=== PATIENT | female | born 1945 | race Caucasian/White ===

== ENCOUNTER → 2018-03-13 | Day surgery (SDC) | payer MEDICARE, OTHER ==
[~2018-03-13] MED LIST: AMOXICILLIN250 MG PO; ARMOUR THYROID60 MG PO; BUSPIRONE HCL5 MG PO; CYMBALTA30 MG PO; DEXAMETHASONE SOD PHOS INJ 4 MG/ML VIAL ONE; FENTANYL CITRATE/PF 100MCG/2 ML INJ ONE; FLUOCINONIDE60 ML TOP; GLYCOPYRROLATE INJ 1MG/ 5 ML SYR ONE; LABETALOL HCL 5 MG/ML 20ML VIAL ONE; LIDOCAINE 1% W/EPINEPHRINE 20 ML VIAL ONE; LIDOCAINE HCL 2% LOCAL INJ 5 ML SDV VIAL INJ ONE; LISINOPRIL2.5 MG PO; METOPROLOL SUCC50 MG PO; MIDAZOLAM HCL 2 MG/2 ML VIAL ONE; MONTELUKAST SOD10 MG PO; NEOSTIGMINE 1 MG/ML 10ML VIAL ONE; NEOSTIGMINE 5 MG/5ML SYR ONE; NYSTATIN-TRIAMC15 GM TOP; ONDANSETRON HCL INJ 2 MG/ML VIAL ONE; POTASSIUM CHLO10 ME1 PO; PROPOFOL IV EMULSION 10 MG/ML 20 ML VIAL ONE; ROCURONIUM BROMIDE 10 MG/ML 5ML VIAL ONE; SEVOFLURANE INHAL SOLN 250 ML PEN BTL ONE; VESICARE5 MG PO; VICTOZA 2-0.6 MG/0.1 SQ
--- OUTSIDE RECORDS SUMMARY | 2018-03-13 08:57 | XMS REPORT | Clinical Summary ---
Author Author [facility] [facility] Organization [facility] Address Unknown Phone Unavailable Care Team Providers Care Overnight Caregiver Name Role Phone Breanne Clarke MD PCP Allergies Active Allergy Reactions Severity Noted Date Comments Codeine Itching 08/29/2016 Influenza Vaccine Tri-Sp Swelling 08/29/2016 Swelling at site 09- Morphine (Pf) 10/12/2016 Pneumococcal Vaccine Itching, Swelling 08/29/2016 Carbamazepine Itching 08/29/2016 Current Medications Prescription Sig. Disp. Refills Start End Date Status Date lisinopril Take 5 mg by mouth daily. Active (PRINIVIL,ZESTRIL) 5 MG tablet solifenacin (VESICARE) 10 Take 5 mg by mouth daily. Active MG tablet furosemide (LASIX) 40 MG Take 40 mg by mouth 2 Active tablet (two) times a day. montelukast (SINGULAIR) Take 10 mg by mouth Active 10 mg tablet nightly. DULoxetine (CYMBALTA) 60 Take 60 mg by mouth Active MG capsule daily. clopidogrel (PLAVIX) 75 Take 75 mg by mouth Active mg tablet daily. thyroid, pork, (ARMOUR Take 1 tablet (120 mg 90 tablet 1 12/19/19 Active THYROID) 120 mg tablet total) by mouth daily. 17 dulaglutide (TRULICITY) Inject 0.75mg under the 4 Syringe 2 04/12/20 Active 0.75 mg/0.5 mL pen skin, once a week 17 injector ANORO ELLIPTA 62.5-25 INHALE ONE DOSE BY MOUTH 60 each 0 06/26/20 Active mcg/actuation blister DAILY 17 with device ziprasidone (GEODON) 40 Take 40 mg by mouth Active MG capsule daily. busPIRone (BUSPAR) 15 MG Take 15 mg by mouth Active tablet daily. ondansetron ODT (ZOFRAN Take 1 tablet (4 mg 20 tablet 0 07/01/20 Active ODT) 4 MG disintegrating total) by mouth every 8 17 tablet (eight) hours as needed for nausea or vomiting for up to 30 doses. metFORMIN (GLUCOPHAGE) Take 500 mg by mouth. 04/06/20 Discontin 500 MG tablet 17 ued ziprasidone (GEODON) 60 Take 60 mg by mouth 2 07/01/20 Discontin MG capsule (two) times a day with 17 ued meals. diphenhydrAMINE Take by mouth 4 (four) 07/01/20 Discontin (BENADRYL) 12.5 mg/5 mL times a day as needed for 17 ued liquid allergies. loratadine-pseudoepHEDrin Take 1 tablet by mouth 07/01/20 Discontin e (CLARITIN-D 24-hour) daily. 17 ued 10-240 mg per 24 hr tablet busPIRone (BUSPAR) 10 MG Take 15 mg by mouth 3 07/01/20 Discontin tablet (three) times a day. 17 ued umeclidinium-vilanterol 1 inhalation daily 1 each 0 11/03/20 Discontin (ANORO ELLIPTA) 62.5-25 16 17 ued mcg/actuation blister with device ANORO ELLIPTA 62.5-25 INHALE ONE DOSE BY MOUTH 60 each 1 03/30/20 Discontin mcg/actuation blister DAILY 17 17 ued with device nystatin (MYCOSTATIN) Take 500,000 Units by 07/01/20 Discontin 100,000 unit/mL mouth 4 (four) times a 17 ued suspension day. Swish in mouth sulfamethoxazole-trimetho Take 1 tablet by mouth 2 07/01/20 Discontin prim (BACTRIM DS) 800-160 (two) times a day. 17 ued mg per tablet tolterodine LA (DETROL Take 4 mg by mouth daily. 07/01/20 Discontin LA) 4 MG 24 hr capsule 17 ued mupirocin (BACTROBAN) 2 % Apply topically 3 (three) 07/01/20 Discontin ointment times a day. 17 ued liraglutide (VICTOZA Inject 0.2 mL (1.2 mg 6 pen 1 04/06/20 Discontin 2-RAMSES) 0.6 mg/0.1 mL (18 total) under the skin 17 17 ued mg/3 mL) pen injector daily with breakfast. pen needle, diabetic (BD Use one daily 100 each 3 04/06/20 07/01/20 Discontin ULTRA-FINE LESLIE PEN 17 17 ued NEEDLES) 32 gauge x 5/32" needle dulaglutide 0.75 mg/0.5 Inject 0.75mg under the 4 Syringe 3 04/12/20 04/12/20 Discontin mL pen injector skin once a week 17 ued dulaglutide (TRULICITY) Inject 0.75mg under the 2 Syringe 0 04/12/20 07/01/20 Discontin 0.75 mg/0.5 mL pen skin once a week 17 17 ued injector Active Problems Problem Noted Date Uncontrolled type 2 diabetes mellitus without complication, without 2015 long-term current use of insulin Hypothyroidism 08/29/2016 Encounters Date Type Specialty Care Team Description 02/08/2018 Hospital Radiology Nithin Cole III, MD Granulomatous hepatitis Encounter 01/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 Hospital Pulmonology Aram Coker Encounter 01/18/2018 Transcribe Access Nithin Cole III, MD Granulomatous hepatitis Orders (Primary Dx) 12/20/2017 Orders Only Pulmonology Aram Coker DOE ( dyspnea on exertion) (Primary Dx); Cough 07/27/2017 Office Visit Pulmonology Aram Coker DOE ( dyspnea on exertion) (Primary Dx); Cough; Non morbid obesity due to excess calories 07/03/2017 Refill Pulmonology Aram Coker MD 07/01/2017 Emergency Emergency Medicine Steff Rubalcava, Vomiting and diarrhea DO (Primary Dx); Dehydration 06/22/2017 Orders Only Endocrinology Monica Randhawa LVN Uncontrolled type 2 diabetes mellitus with hyperglycemia, without long-term current use of insulin (Primary Dx) 06/19/2017 Refill Pulmonology Aram Coker MD 06/15/2017 Lab Lab Nithin Cole III, MD 06/15/2017 Hospital Radiology Nithin Cole III, MD Hepatomegaly Encounter 06/15/2017 Ancillary Radiology Nithin Cole III, MD Hepatomegaly Orders 06/13/2017 Hospital Radiology Nithin Cole III, MD Canceled Encounter (Department/Provider) 05/31/2017 Transcribe Radiology Nithin Cole III, MD Hepatomegaly ( Primary Dx) Orders 05/10/2017 Orders Only Endocrinology Bess Clarke MD Uncontrolled type 2 diabetes mellitus without complication, without long-term current use of insulin (Primary Dx); Hypothyroidism, unspecified type 05/05/2017 Telephone Endocrinology Monica Randhawa LVN Uncontrolled type 2 diabetes mellitus with hyperglycemia, unspecified chcf insulin use status (Primary Dx) 04/19/2017 Telephone Endocrinology Monica Randhawa LVN 04/12/2017 Refill Endocrinology oMnica Randhawa LVN 04/07/2017 Office Visit Pulmonology Aram Coker DOE ( dyspnea on exertion) (Primary Dx); Congestive heart failure, unspecified congestive heart failure chronicity, unspecified congestive heart failure type; Cough; Shortness of breath; Wheezing; Obesity due to excess calories, unspecified obesity severity; BMI 34.0-34.9,adult 04/07/2017 Telephone Endocrinology Gwen Lyon MA 04/06/2017 Office Visit Endocrinology Bess Clarke MD Uncontrolled type 2 diabetes mellitus without complication, without long-term current use of insulin (Primary Dx) 03/29/2017 Refill Pulmonology Aram Coker MD 03/28/2017 Telephone Endocrinology Bess Clarke MD after 03/12/2017 Family History Medical History Relation Name Comments Heart attack Father Hypertension Father Cancer Mother Cancer Sister Hypertension Sister Relation Name Status Comments Father Mother Colon Sister Blood CA Social History Tobacco Use Types Packs/Day Years Used Date Never Smoker Smokeless Tobacco: Never Used Alcohol Use Drinks/Week oz/Week Comments No Sex Assigned at Date Recorded Not on file Last Filed Vital Signs Vital Sign Reading Time Taken Blood Pressure 152/82 07/27/2017 3:04 PM CDT Pulse 70 07/27/2017 3:04 PM CDT Temperature 36.8 C (98.3 F) 07/27/2017 3:04 PM CDT Respiratory Rate 16 07/01/2017 9:13 PM CDT Oxygen Saturation 98% 07/27/2017 3:04 PM CDT Inhaled Oxygen - - Concentration Weight 84.9 kg (187 lb 3.2 oz) 07/27/2017 3:04 PM CDT Height 167.6 cm (5' 6") 07/27/2017 3:04 PM CDT Body Mass Index 30.21 07/27/2017 3:04 PM CDT Plan of Treatment Health Maintenance Due Date Last Done Comments FOOT EXAM 1955 OPHTHALMOLOGY EXAM 1955 COLONOSCOPY 1995 SHINGRIX VACCINE (#1) 1995 ZOSTER VACCINE 2005 PNEUMOCOCCAL 2010 POLYSACCHARIDE VACCINE AGE 65 AND OVER PNEUMOCOCCAL-13 2010 MAMMOGRAM 11/18/2016 11/18/2014, 07/17/2009 URINE MICROALBUMIN 01/05/2018 01/05/2017, 08/29/2016 INFLUENZA VACCINE 06/13/2018 Procedures Procedure Name Priority Date/Time Associated Diagnosis Comments DIFFUSION CAPACITY Routine 01/24/2018 POMPA (dyspnea on exertion) Results for this 10:33 AM CDT Cough procedure are in the results section. BODY PLETHYSMOGRAPHIC Routine 01/24/2018 POMPA (dyspnea on exertion) Results for this LUNG VOLUMES 10:33 AM CDT Cough procedure are in the results section. SPIROMETRY PRE AND POST Routine 01/24/2018 POMPA (dyspnea on exertion) Results for this WITH BRONCHILATOR 10:33 AM CDT Cough procedure are in the results section. after 03/12/2017 Results * US Hepatic (02/08/2018 11:30 AM) Specimen Performing Laboratory [facility] [address] [place] [address] Narrative EXAMINATION:US HEPATIC CLINICAL HISTORY:K75.3 Granulomatous hepatitisnot elsewhere classified, granulomatous hepatitis COMPARISON:None. IMPRESSION: Liver: Heterogeneous echotexture. No focal mass. Portal vein: The portal vein is normal in size and demonstrates normal hepatopetal flow. Gallbladder: Surgically absent. Common bile duct: Normal caliber. 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 IMPRESSION: Liver: Heterogeneous echotexture. No focal mass. Portal vein: The portal vein is normal in size and demonstrates normal hepatopetal flow. Gallbladder: Surgically absent. Common bile duct: Normal caliber. [facility] [id number] * Diffusion capacity (01/24/2018 10:33 AM) Narrative Aram Coker MD 01/26/20189:05 AM Pulmonary Function Test Interpretation Patient name: Elicia Soto Date of : 1945 Date of procedure: 01/24/2018 Referring provider: Aram Beckwith M.D., FACP, FCCP Rendering provider: Aram Beckwith M.D., FACP, FCCP I reviewed the data from the pulmonary function test including the spirometry, lung volumes, and diffusion capacity. Moderate nonspecific impairment of FEV1 and FVC. Lung volumes suggest air trapping. Airway resistance is increased. The diffusion capacity is mildly impaired. No response to the administration of a bronchodilator. Aram Beckwith M.D., FACP, FCCP * Body Plethysmographic lung volumes (01/24/2018 10:33 AM) Narrative Aram Coker MD 01/26/20189:05 AM Pulmonary Function Test Interpretation Patient name: Elicia Soto Date of : 1945 Date of procedure: 01/24/2018 Referring provider: Aram Beckwith M.D., FACP, FCCP Rendering provider: Aram Beckwith M.D., FACP, FCCP I reviewed the data from the pulmonary function test including the spirometry, lung volumes, and diffusion capacity. Moderate nonspecific impairment of FEV1 and FVC. Lung volumes suggest air trapping. Airway resistance is increased. The diffusion capacity is mildly impaired. No response to the administration of a bronchodilator. Aram Beckwith M.D., FACP, FCCP * Spirometry pre & post w/ bronchodilator (01/24/2018 10:33 AM) Narrative Aram Coker MD 01/26/20189:05 AM Pulmonary Function Test Interpretation Patient name: Elicia Soto Date of : 1945 Date of procedure: 01/24/2018 Referring provider: Aram Beckwith M.D., FACP, FCCP Rendering provider: Aram Beckwith M.D., FACP, FCCP I reviewed the data from the pulmonary function test including the spirometry, lung volumes, and diffusion capacity. Moderate nonspecific impairment of FEV1 and FVC. Lung volumes suggest air trapping. Airway resistance is increased. The diffusion capacity is mildly impaired. No response to the administration of a bronchodilator. Aram Beckwith M.D., FACP, FCCP * ECG ED Preliminary Interpretation - NOT AN ORDER (07/03/2017 6:51 PM) Favio Rubalcava DO 07/03/20176:51 PM ECG ED Preliminary Interpretation - Not an Order Performed by: STEFF RUBALCAVA Authorized by: STEFF RUBALCAVA Previous ECG: Previous ECG:Compared to current Comparison ECG info:07/29/16 Similarity:No change Interpretation: Interpretation: abnormal Rate: ECG rate:110 ECG rate assessment: tachycardic Rhythm: Rhythm: sinus tachycardia Ectopy: Ectopy: none QRS: QRS axis:Normal QRS intervals:Normal Conduction: Conduction: normal ST segments: ST segments:Normal T waves: T waves: normal Comments: 1554 * Lactic acid level (07/01/2017 6:40 PM) Only the most recent of 2 results within the time period is included. Component Value Ref Range Lactic acid 1.2 0.5 - 2.2 mmol/L Specimen Performing Laboratory Blood [facility] [address] [place] [address] * XR Chest 1 Vw Portable (07/01/2017 5:16 PM) Specimen Performing Laboratory [facility] [address] [place] [address] Narrative EXAMINATION:XR CHEST 1 VW PORTABLE CLINICAL HISTORY:SHORTNESS OF BREATH COMPARISON:08/01/2016 IMPRESSION: Cardiomegaly is stable. The lungs are grossly clear. No pleural fluid or pneumothorax is seen. There is no significant skeletal finding. 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 There is no interval radiographic change. [facility] [id number] Procedure Note Interface, Radiology Results Incoming - 07/01/2017 5:24 PM CDT EXAMINATION: XR CHEST 1 VW PORTABLE CLINICAL HISTORY: SHORTNESS OF BREATH COMPARISON: 08/01/2016 IMPRESSION: Cardiomegaly is stable. The lungs are grossly clear. No pleural fluid or pneumothorax is seen. There is no significant skeletal finding. 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 There is no interval radiographic change. [facility] [id number] * ECG 12 lead (07/01/2017 3:53 PM) Component Value Ref Range Ventricular rate 110 Atrial rate 110 TX interval 166 QRSD interval 82 QT interval 346 QTC interval 468 P axis 1 46 QRS axis 1 -21 T wave axis 57 EKG impression Sinus tachycardia-Possible Left atrial enlargement-Left ventricular hypertrophy-Abnormal ECG-In automated comparison with ECG of 29-JUL-2016 11:40,-No significant change was found- Specimen Performing Laboratory [facility] [place] MUSE [address] [place] [address] * Estimated GFR (07/01/2017 3:49 PM) Component Value Ref Range GFR Non Af Amer 55 (A) mL/min/1.73 m2 GFR Af Amer 66 mL/min/1.73 m2 Comment: Chronic kidney disease: <60 mL/min/1.73m2 Kidney failure: <15 mL/min/1.73m2 The estimated GFR is calculated from the IDMS-traceable Modification of Diet in Renal Disease Equation. The accuracy of the calculation is poor when the creatinine is normal. Calculated values >90 mL/min/1.73m2 are not reported. This equation has not been validated in children (<18 years), women, the elderly (>70 years), or ethnic groups other than Caucasians and Americans. Specimen Performing Laboratory Plasma specimen [facility] [address] [facility] [place] [address] * Lipase level (07/01/2017 3:49 PM) Component Value Ref Range Lipase 131 65 - 230 U/L Specimen Performing Laboratory Plasma specimen [facility] [address] [place] [address] * Bilirubin direct (07/01/2017 3:49 PM) Component Value Ref Range Bilirubin direct 0.1 0.0 - 0.4 mg/dL Specimen Performing Laboratory Plasma specimen [facility] [address] [facility] [place] [address] * Amylase level (07/01/2017 3:49 PM) Component Value Ref Range Amylase 82 34 - 122 U/L Specimen Performing Laboratory Plasma specimen [facility] [address] [place] [address] * Comprehensive metabolic panel (07/01/2017 3:49 PM) Component Value Ref Range Sodium 140 135 - 150 mEq/L Potassium 3.2 (L) 3.5 - 5.0 mEq/L Chloride 102 100 - 109 mEq/L CO2 28 24 - 32 mmol/L Anion gap 10 7 - 15 mEq/L Comment: Starting from February , anion gap calculation no longer incorporates potassium. Please note the change. BUN 11 7 - 18 mg/dL Creatinine 1.0 0.8 - 1.5 mg/dL Glucose 159 (H) 65 - 100 mg/dL Calcium 9.8 8.6 - 10.7 mg/dL Protein 7.6 6.3 - 8.2 g/dL Albumin 3.6 3.2 - 5.0 g/dL A/G ratio 0.9 0.7 - 3.8 Alkaline phosphatase 141 (H) 30 - 120 U/L AST 15 15 - 37 U/L ALT 19 (L) 30 - 65 U/L Total bilirubin 0.4 0.2 - 1.2 mg/dL Specimen Performing Laboratory Plasma specimen [facility] AND [facility] [address] [place] [address] * Urinalysis screen and microscopy, with reflex to culture (07/01/2017 3:48 PM) Component Value Ref Range Specimen site Clean catch Color, UA Straw Appearance, UA Clear Specific gravity, UA 1.010 1.001 - 1.035 pH, UA 5.0 5.0 - 8.5 Protein, UA Negative Negative Glucose, UA Negative Negative Ketones, UA Trace (A) Negative Bilirubin, UA Negative Negative Blood, UA Trace (A) Negative Nitrite, UA Negative Negative Urobilinogen, UA Negative <2.0 Leukocyte esterase, UA Negative Negative Epithelial cells, UA Few /HPF WBC, UA <1 0 - 5 /HPF RBC, UA 4 0 - 5 /HPF Bacteria, UA None seen None seen Yeast, UA None seen Yeast with pseudohyphae, None seen UA Specimen Performing Laboratory Urine [facility] [address] [place] [address] * CBC with platelet and differential (07/01/2017 3:48 PM) Component Value Ref Range WBC 13.6 (H) 4.2 - 11.0 k/uL RBC 4.43 4.04 - 5.86 m/uL HGB 12.9 11.5 - 15.3 g/dL HCT 39.0 34.0 - 45.0 % MCV 88.0 80.0 - 98.0 fL MCH 29.1 27.0 - 34.0 pg MCHC 33.1 31.5 - 36.5 g/dL RDW - SD 44.0 37.0 - 51.0 fL MPV 11.0 (H) 7.4 - 10.4 fL Platelet count 208 150 - 400 k/uL Nucleated RBC 0.00 /100 WBC Neutrophils 88.0 (H) 36.0 - 66.0 % Lymphocytes 5.4 (L) 24.0 - 44.0 % Monocytes 5.4 0.0 - 6.0 % Eosinophils 0.4 0.0 - 6.0 % Basophils 0.4 0.0 - 1.2 % Immature granulocytes 0.4 0.0 - 1.0 % Specimen Performing Laboratory Blood [facility] [address] [place] [address] * Urine culture (07/01/2017 3:48 PM) Component Value Ref Range Urine culture SEE COMMENTComment: Bacteriuria screen negative. Specimen Performing Laboratory Urine [facility] OF PATHOLOG[facility] AND GENOMIC MEDICINE [address] [place] [address] * Surgical pathology request (06/15/2017 10:51 AM) Component Value Ref Range Surgical pathology report See link below for PDF Lab Report Specimen Performing Laboratory [facility] [place] DEPARTMENT OF PATHOLOGY AND GENOMIC MEDICINE [address] [place] [address] * Cytology (non-gynecological) request (06/15/2017 10:30 AM) Component Value Ref Range Cytology See link below for PDF Lab Report (non-gynecological) report Specimen Performing Laboratory [facility] [place] DEPARTMENT OF PATHOLOGY AND GENOMIC MEDICINE [address] [place] [address] * US Liver Biopsy (06/15/2017 9:35 AM) Specimen [place] [address] Narrative Procedure: Medical liver biopsy Performing Radiologist: Rashad Watts MD Assistants: None. Anesthesia Type: Moderate sedation was administered by the procedure nurse and monitored by the procedure physician for 15 minutes.Lidocaine was used for local anesthesia. The [id number] position to patient sedation time was 12 minutes. Preprocedure Diagnosis: Elevated liver enzymes. Inhomogenous liver Post Procedure Diagnosis: Same Informed Consent: Risks, benefits, and alternatives were discussed. Written informed consent was obtained prior to the procedure. Technique: Patient was placed in supine position. Skin was sterilely prepped and draped. Lidocaine was infiltrated into the soft tissues for local anesthesia. Under ultrasound guidance, a single 18-gauge core needle biopsy was obtained with a Biopence needle. Postprocedure scan revealed no hematoma.Hemostasis was obtained with manual compression. A sterile occlusive dressing was applied. Patient tolerated the procedure well, left the room in stable condition, and was escorted to observation for further monitoring. Complications: No immediate. Specimens Removed: As above. Estimated Blood Loss: Less than 5 mL. Blood/Blood Products Administered: None. Grafts/Implants: None. Impression: Successful ultrasound-guided liver biopsy. [facility] [id number] Procedure Note [facility], Radiology Results Incoming - 06/15/2017 10:42 AM CDT Procedure: Medical liver biopsy Performing Radiologist: Rashad Watts MD Assistants: None. Anesthesia Type: Moderate sedation was administered by the procedure nurse and monitored by the procedure physician for 15 minutes. Lidocaine was used for local anesthesia. The [id number] position to patient sedation time was 12 minutes. Preprocedure Diagnosis: Elevated liver enzymes. Inhomogenous liver Post Procedure Diagnosis: Same Informed Consent: Risks, benefits, and alternatives were discussed. Written informed consent was obtained prior to the procedure. Technique: Patient was placed in supine position. Skin was sterilely prepped and draped. Lidocaine was infiltrated into the soft tissues for local anesthesia. Under ultrasound guidance, a single 18-gauge core needle biopsy was obtained with a Biopence needle. Postprocedure scan revealed no hematoma. Hemostasis was obtained with manual compression. A sterile occlusive dressing was applied. Patient tolerated the procedure well, left the room in stable condition, and was escorted to observation for further monitoring. Complications: No immediate. Specimens Removed: As above. Estimated Blood Loss: Less than 5 mL. Blood/Blood Products Administered: None. Grafts/Implants: None. Impression: Successful ultrasound-guided liver biopsy. [facility] [id number] * POC glucose (06/15/2017 7:17 AM) Component Value Ref Range POC glucose 112 (H) 65 - 99 mg/dL Comment: [facility] Notified RN Meter ID: [id number] [employer] Professor: Jesus Pino Specimen Performing Laboratory [facility] [place] DEPARTMENT OF PATHOLOGY AND GENOMIC MEDICINE [address] [place] [address] * POC glycosylated hemoglobin (Hb A1C) (04/06/2017 3:12 PM) Component Value Ref Range POC Hemoglobin A1C 6.4 % Specimen Performing Laboratory Blood after 03/12/2017 Insurance Payer Benefit Subscriber ID Type Phone Address Plan / Group MEDICARE MEDICARE xxxxxxxxxx Medicare [place], [place] PART A AND B AETNA AETNA xxxxxxxxxx HMO HMO,POS,EP O, MC/EC
--- OUTSIDE RECORDS SUMMARY | 2018-03-13 08:57 | XMS REPORT ---
Author Author Admin, [facility] Organization [facility] Address Unknown Phone Unavailable Allergies, Adverse Reactions, Alerts Allergy Name Reaction Description Start Date Severity Status Provider CODEINE Severe Active Blanca Arthur PMHNP TEGRETOL Severe Active Blanca Arthur PMHNP MORPHINE Severe Active Blanca Arthur PMHNP Conditions or Problems Problem Name Problem Code Onset Date Status Entry Date Provider Comment Standard Description Annotate DEPRESSIVE DISORDER, MAJOR, RECURRENT EPISODE, MODERATE Active Blancamary Arthur PMHNP Major depressive disorder, recurrent episode, moderate degree Medication List Medication Instructions Start Date Stop Date Generic Name NDC Status Provider Patient Instruction LEXAPRO 10 MG ORAL TABLET Take 1 tablet By Mouth QAM ESCITALOPRAM OXALATE 37866457120 Active Blanca Mendozaley PMHNP Active BUSPIRONE HCL 15 MG ORAL TABLET Take 1 tablet By Mouth BID BUSPIRONE HCL 71712928493 Active Blanca Arthur PMHNP Active CYMBALTA 30 MG ORAL CAPSULE DELAYED RELEASE PARTICLES Take 3 capsules By Mouth QAM DULOXETINE HCL 30928132969 Active Blanca Arthur PMHNP Active Vital Signs Date Name Value Unit Range Description blood pressure, diastolic 70 mm[Hg] BP rueda blood pressure, systolic 120 mm[Hg] BP sys height E&M 65 [in_us] Bdy height pulse rate E&M 103 /min Heart rate weight E&M 200 [lb_av] Weight Measured blood pressure, diastolic 79 mm[Hg] BP rueda blood pressure, systolic 136 mm[Hg] BP sys height E&M 65 [in_us] Bdy height pulse rate E&M 83 /min Heart rate weight E&M 200 [lb_av] Weight Measured blood pressure, diastolic 71 mm[Hg] BP rueda blood pressure, systolic 122 mm[Hg] BP sys height E&M 65 [in_us] Bdy height pulse rate E&M 90 /min Heart rate weight E&M 192.80 [lb_av] Weight Measured blood pressure, diastolic 61 mm[Hg] BP rueda blood pressure, systolic 148 mm[Hg] BP sys height E&M 65 [in_us] Bdy height pulse rate E&M 86 /min Heart rate weight E&M 191.20 [lb_av] Weight Measured Encounters Date Encounter Provider Code Facility 14:42:22 CDT Est Patient Exp Problem - 50106 Blanca Arthur [facility] CPT-48509 [facility] 21:14:15 CDT Est Patient Exp Problem - 61086 Blanca Arthur HNP CPT-98998 [facility] 12:59:[address] [facility] Est Patient Exp Problem - 74714 Blanca Arthur [facility] CPT-99840 [facility] Procedures Code Procedure Name Date Entry Date Standard Description CPT-86288 Diagnostic evaluation with medical - 25271 15:50:[address] [facility]
[2018-03-13 09:41] LABS: BASOPHILS # (AUTO) 0.1 (0.0-0.1); EOSINOPHILS # (AUTO) 0.6 (0.0-0.4); EOSINOPHILS % 11.2 % (0.0-6.0); HEMATOCRIT 35.1 % (34.2-44.1); HEMOGLOBIN 11.4 g/dL (12.0-16.0); LYMPHOCYTES % 19.6 % (18.0-39.1); MEAN CORPUSCULAR HGB CONC 32.5 g/dL (31-35); MEAN CORPUSCULAR VOLUME 89.3 fL (81-99); MONOCYTES # (AUTO) 0.6 (0.2-0.8); MONOCYTES % 11.6 % (4.4-11.3); NEUTROPHILS # (AUTO) 2.8 (2.1-6.9); PLATELET COUNT 206 x10e3/uL (140-360); RED BLOOD COUNT 3.93 x10e6/uL (3.6-5.1); RED CELL DISTRIBUTION WIDTH 14.3 % (11.7-14.4)
[2018-03-13 09:56] LABS: ANION GAP 12.5 mmol/L (8-16); CALCIUM 9.9 mg/dL (8.4-10.2); CREATININE, SERUM 1.21 mg/dL (0.57-1.11); POTASSIUM 4.5 mmol/L (3.5-5.1)
[2018-03-13 09:59] LABS: INR 0.99; PROTHROMBIN TIME 12.3 seconds (11.9-14.5)
[2018-03-13 10:07] LABS: PARTIAL THROMBOPLASTIN TIME 29.7 seconds (23.8-35.5)
--- NOTE | 2018-03-13 10:30 | Diagnostic Imaging Report ---
PROCEDURE:CHEST 2 VIEWS TECHNIQUE:PA lateral chest INDICATION:Preoperative evaluation for tongue biopsy COMPARISON:None. FINDINGS: The lungs are clear and symmetrically inflated. No pleural effusions. Prominent left heart mogule. Surgical clips over the left chest. Intact skeleton. CONCLUSION: Prominent left cardiac border which may be secondary to left ventricular hypertrophy, left ventricular aneurysm or pericardial cyst. Comparison with prior studies would be ideal. Dictated by: Jose Maria Fleming M.D. on 03/13/2018 at 10:32 Electronically approved by: Jose Maria Fleming M.D. on 03/13/2018 at 10:32
--- NOTE | 2018-03-13 11:20 | Operative Report ---
DATE OF PROCEDURE: March 13, 2018 CHIEF COMPLAINT: Lesion of left posterolateral tongue. POSTOPERATIVE DIAGNOSIS: Lesion of left posterolateral tongue. OPERATIVE PROCEDURES: Direct laryngoscopy, rigid esophagoscopy, rigid bronchoscopy, microlaryngoscopy, biopsy of left posterolateral tongue lesion. ANESTHESIA: [facility]. INDICATIONS: This 72-year-old female has a 6-month history of a lesion in the left posterolateral tongue. The patient has had no trauma to that area. The patient is a nonsmoker and nondrinker. Because the lesion was nonhealing, it was decided that biopsy along with panendoscopy, microlaryngoscopy, and other necessary procedures would be beneficial for her. PROCEDURE IN DETAIL: Patient was taken to the operating room, put under general anesthesia and endotracheally intubated. The rigid esophagoscopy was performed. Esophagoscope was passed through the cricopharyngeus muscle. Esophagus was examined to about 25 cm from the incisors. Some reflux was noted. The esophagoscope was retrieved. No other abnormality was noted. The rigid bronchoscopy was performed. A size-4 bronchoscope with [place]leton vannessa was used. The bronchoscope was passed parallel to the endotracheal tube. The endotracheal tube cuff was deflated. Trachea was examined down to the giuliana. No abnormality was noted. The bronchoscope was retrieved. The endotracheal tube cuff was reinflated. Direct laryngoscopy was performed. The Joby laryngoscope was used. Oropharynx and oral cavity were examined. No obvious abnormality was noted. The lesion was noted in the lateral tongue posteriorly on the left side. This was biopsied using the cup forceps. Hemostasis in that area was achieved by injecting 1% Xylocaine with 1:100,000 epinephrine to that region. Microlaryngoscopy was performed. The patient was repositioned. The laryngoscope was put on suspension. The operating microscope was brought in. The larynx was examined, and both the true and false vocal folds were examined. No abnormality was noted. The patient tolerated the above procedures well with minimal blood loss. She was given 20 mg of Decadron intraoperatively. Patient was able to be transferred to the recovery room in stable condition. Job#: [id number]
== END | disposition home or self-care (01) ==
LOC: OR 08:54
PROVIDERS: ATTEND Otolaryngology Otolaryngology/Facial Plastic Surgery
DX: K14.8 Other diseases of tongue (principal); I11.0 Hypertensive heart disease with heart failure; I50.9 Heart failure, unspecified; Z01.810 Encounter for preprocedural cardiovascular examination; Z01.812 Encounter for preprocedural laboratory examination; Z01.818 Encounter for other preprocedural examination; I25.10 Atherosclerotic heart disease of native coronary artery without angina pectoris; Z95.1 Presence of aortocoronary bypass graft; M26.609 Unspecified temporomandibular joint disorder, unspecified side; F41.9 Anxiety disorder, unspecified; Z98.84 Bariatric surgery status; Z88.6 Allergy status to analgesic agent; Z88.5 Allergy status to narcotic agent
CPT/HCPCS: 31622; 36415; 43191; 71046; 80048; 82948; 85025; 85610; 85730; 88305; 93005; J1100; J2001; J2250; J2405; J2710; J3490